=== PATIENT | female | born 2000 | race Caucasian/White ===

== ENCOUNTER → 2021-04-10 16:58 | Outpatient (CLI) | payer BC, MEDICAID ==
[2021-04-10 18:37] LABS: BILIRUBIN NEGATIVE (NEGATIVE); KETONE NEGATIVE (NEGATIVE); NITRITE NEGATIVE (NEGATIVE); UROBILINOGEN NORMAL mg/dL (< 2)
[2021-04-10 18:39] LABS: SQUAMOUS EPITHELIAL 0-5 HPF (0-4)
[2021-04-10 18:40] LABS: BACTERIA MODERATE HPF (NONE SEEN)
== END | disposition home or self-care (01) ==
LOC: D.LDO 16:58
PROVIDERS: ATTEND Obstetrics & Gynecology
DX: O26.899 Other specified pregnancy related conditions, unspecified trimester (principal); R10.10 Upper abdominal pain, unspecified

== ENCOUNTER → 2021-05-01 08:46 | Outpatient (CLI) | payer BC, MEDICAID | END | disposition home or self-care (01) | LOC: D.US 08:46 | PROVIDERS: ATTEND Obstetrics & Gynecology | DX: R10.11 Right upper quadrant pain (principal) ==